=== PATIENT | male | born 1945 | race Caucasian/White ===

== ENCOUNTER 2022-01-04 08:24 | Inpatient (IN) ==
[2022-01-04 09:18] LABS: Basophils % 0.3 % (0.0-0.8); Eosinophils % 0.1 % (0.00-10.9); Hematocrit 40.4 VOL% (42.0-52.0); Hemoglobin 14.1 GM/DL (14.0-18.0); Immature Granulocytes % 0.5 %; Immature Granulocytes Absolute 0.06 #; Lymphocytes # 0.5 10*3/uL (1.4-4.0); Lymphocytes % 4.4 % (21.2-54.2); Mean Corpuscular HGB Conc 34.9 GM/DL (32-36); Mean Corpuscular Volume 88.6 FL (87-102); Mean Platelet Volume 10.7 FL (9.6-12.0); Monocytes % 6.6 % (1.7-12.7); Neutrophils % 88.1 % (38.7-73.9); Platelet Count 182 T/CUMM (130-400); Red Blood Count 4.56 MC/CUMM (3.8-5.5); White Blood Count 11.5 T/CUMM (4-12)
[2022-01-04 09:26] LABS: PT Patient Result 10.8 SECS (10.5-12.0)
[2022-01-04 09:32] LABS: Albumin 3.8 G/DL (3.4-5.0); Bilirubin,Total 0.6 MG/DL (0.20-1.00); Calcium 9.3 MG/DL (8.5-10.1); Osmolality,Calculated 284.5 MOS/KG (273-304); Potassium 3.5 MMOL/L (3.5-5.1); Total Protein 6.4 G/DL (6.4-8.2)
[2022-01-04 09:36] LABS: Lymphocytes 5 % (20-55); Segmented Neutrophils 91 % (50-85); Total Cells Counted 100
[2022-01-04 09:37] LABS: Platelet Estimate Adequate
[2022-01-04 11:17] LABS: Bilirubin,Urine Negative (Negative); Blood, Urine Large mg/dL (Negative); Glucose,Urine (UA) Negative (Negative); Ketones,Urine Negative (Negative); Mucus,Urine Few /LPF (Occasional); Nitrite,Urine Negative (Negative); Protein,Urine 2+ MG/DL; RBC,Urine 2 /HPF (0-4); Urine Appearance Cloudy (Clear); Urine Color Yellow (Yellow); Urine Specific Gravity 13.026 (1.001-1.035); Urine Urobilinogen 0.2 EU/DL (<2.0); Urine pH 5.5 (4.5-8.0)
[2022-01-04] MEDS ORDERED: ACETAMINOPHEN 325 MG TABLET PO PRN (15:43)
[2022-01-04] MEDS ORDERED: ONDANSETRON 4 MG/2 ML VIAL IV PRN (15:43)
[2022-01-04] MEDS ORDERED: MORPHINE 4 MG/1 ML VIAL IV PRN ×2 (16:36→19:32)
[2022-01-04] MEDS ORDERED: MORPHINE 4 MG/1 ML VIAL ONE (16:47)
[2022-01-04] MEDS ORDERED: hydrALAZINE 20 MG/1 ML VIAL IV PRN ×2 (17:03→19:31)
[2022-01-04] MEDS: SODIUM CHLORIDE 0.45% 1,000 ML IV SCH (19:30)
[2022-01-04] MEDS ORDERED: ENOXAPARIN 40 MG/0.4 ML SYRINGE SUBCUT SCH (21:00)
[2022-01-04] MEDS: DOCUSATE SODIUM 100 MG CAPSULE PO SCH (21:55)
[2022-01-05] MEDS ORDERED: diphenhydrAMINE CAP 25 MG CAPSULE PO PRN (01:17)
[2022-01-05] MEDS ORDERED: MELATONIN 3 MG TABLET PO PRN (01:22)
[2022-01-05] MEDS ORDERED: LORazepam 2 MG/1 ML VIAL IV ONE (01:45)
[2022-01-05] MEDS ORDERED: methylPREDNISolone SOD SUC 40 MG/1 ML VIAL IV SCH (02:30)
[2022-01-05 06:39] LABS: Basophils # 0.1 10*3/uL (0.0-0.2); Basophils % 0.6 % (0.0-0.8); Eosinophils # 0.1 10*3/uL (0.0-0.87); Eosinophils % 1.2 % (0.00-10.9); Hematocrit 40.7 VOL% (42.0-52.0); Hemoglobin 14.2 GM/DL (14.0-18.0); Immature Granulocytes % 0.4 %; Immature Granulocytes Absolute 0.03 #; Lymphocytes # 0.7 10*3/uL (1.4-4.0); Mean Corpuscular HGB Conc 34.9 GM/DL (32-36); Mean Corpuscular Volume 90.2 FL (87-102); Mean Platelet Volume 11.2 FL (9.6-12.0); Monocytes % 8.9 % (1.7-12.7); Neutrophils % 79.9 % (38.7-73.9); Platelet Count 168 T/CUMM (130-400); Red Blood Count 4.51 MC/CUMM (3.8-5.5); White Blood Count 8.1 T/CUMM (4-12)
[2022-01-05] MEDS: SODIUM CHLORIDE 0.45% 1,000 ML IV SCH ×3 (06:44→20:45)
[2022-01-05 07:12] LABS: Albumin 3.4 G/DL (3.4-5.0); Bilirubin,Total 1.4 MG/DL (0.20-1.00); Calcium 8.6 MG/DL (8.5-10.1); Osmolality,Calculated 280.4 MOS/KG (273-304); Potassium 3.5 MMOL/L (3.5-5.1); Total Protein 6.4 G/DL (6.4-8.2); Uric Acid 7.7 MG/DL (3.5-7.2)
[2022-01-05] MEDS ORDERED: POTASSIUM CHLORIDE 20 MEQ TABLET PO SCH (09:00)
[2022-01-05] MEDS ORDERED: amLODIPine 5 MG TABLET PO SCH (09:00)
[2022-01-05] MEDS: methylPREDNISolone SOD SUC 40 MG/1 ML VIAL IV SCH ×2 (09:09→20:47)
[2022-01-05] MEDS: SIMVASTATIN 20 MG TABLET PO SCH (09:10)
[2022-01-05] MEDS: DOCUSATE SODIUM 100 MG CAPSULE PO SCH ×2 (09:10→20:47)
[2022-01-05] MEDS: OXYBUTYNIN 5 MG TABLET PO SCH (09:10)
[2022-01-05] MEDS: PANTOPRAZOLE 40 MG TABLET PO SCH (09:10)
[2022-01-05] MEDS: hydrALAZINE 25 MG TABLET PO SCH ×2 (14:11→20:47)
[2022-01-05] MEDS: allopurinoL 100 MG TABLET PO SCH (14:12)
[2022-01-05] MEDS ORDERED: amLODIPine 5 MG TABLET PO ONE (15:00)
[2022-01-05] MEDS: POTASSIUM CHLORIDE 20 MEQ TABLET PO SCH (20:50)
[2022-01-05] MEDS ORDERED: OLANZapine 5 MG TABLET PO SCH (21:00)
[2022-01-06 05:33] LABS: Basophils % 0.1 % (0.0-0.8); Hemoglobin 15.4 GM/DL (14.0-18.0); Immature Granulocytes % 0.4 %; Immature Granulocytes Absolute 0.04 #; Lymphocytes # 0.4 10*3/uL (1.4-4.0); Lymphocytes % 3.8 % (21.2-54.2); Mean Platelet Volume 11.1 FL (9.6-12.0); Monocytes % 2.4 % (1.7-12.7); Neutrophils % 93.3 % (38.7-73.9); Platelet Count 190 T/CUMM (130-400); Red Blood Count 4.89 MC/CUMM (3.8-5.5); Red Cell Distribution Width 11.9 % (9.3-17.3); White Blood Count 10.6 T/CUMM (4-12)
[2022-01-06 05:46] LABS: Albumin 3.5 G/DL (3.4-5.0); Bilirubin,Total 1.6 MG/DL (0.20-1.00); Osmolality,Calculated 286.3 MOS/KG (273-304); Potassium 4.4 MMOL/L (3.5-5.1); Total Protein 6.9 G/DL (6.4-8.2)
[2022-01-06 06:26] LABS: Band Neutrophils 1 % (0-10); Lymphocytes 5 % (20-55); Platelet Estimate Adequate; Segmented Neutrophils 92 % (50-85); Total Cells Counted 100
[2022-01-06] MEDS: OXYBUTYNIN 5 MG TABLET PO SCH (09:00)
[2022-01-06] MEDS: amLODIPine 10 MG TABLET PO SCH (09:00)
[2022-01-06] MEDS: SIMVASTATIN 20 MG TABLET PO SCH (09:00)
[2022-01-06] MEDS: PANTOPRAZOLE 40 MG TABLET PO SCH (09:00)
[2022-01-06] MEDS: allopurinoL 100 MG TABLET PO SCH (09:00)
[2022-01-06] MEDS: DOCUSATE SODIUM 100 MG CAPSULE PO SCH ×2 (09:00→21:37)
[2022-01-06] MEDS: POTASSIUM CHLORIDE 20 MEQ TABLET PO SCH ×2 (09:01→21:37)
[2022-01-06] MEDS: methylPREDNISolone SOD SUC 40 MG/1 ML VIAL IV SCH ×2 (09:01→21:40)
[2022-01-06] MEDS: hydrALAZINE 25 MG TABLET PO SCH (09:02)
[2022-01-06 16:03] LABS: Lymphocytes,CSF 37 %; Monocytes,CSF 60 %; Neutrophils,CSF 3 %
[2022-01-06 16:04] LABS: Glucose,CSF 86 MG/DL (40-70); Red Blood Cell,CSF 20 C/CUMM
[2022-01-06 16:05] LABS: Appearance,CSF Clear; White Blood Cell,CSF 7 C/CUMM
[2022-01-06] MEDS: OLANZapine 5 MG TABLET PO SCH (21:36)
[2022-01-06] MEDS: SODIUM CHLORIDE 0.45% 1,000 ML IV SCH ×2 (23:00→23:56)
[2022-01-07] MEDS: PANTOPRAZOLE 40 MG TABLET PO SCH (09:36)
[2022-01-07] MEDS: methylPREDNISolone SOD SUC 40 MG/1 ML VIAL IV SCH ×2 (09:36→21:45)
[2022-01-07] MEDS: allopurinoL 100 MG TABLET PO SCH (09:36)
[2022-01-07] MEDS: amLODIPine 10 MG TABLET PO SCH (09:36)
[2022-01-07] MEDS: POTASSIUM CHLORIDE 20 MEQ TABLET PO SCH ×2 (09:36→21:47)
[2022-01-07] MEDS: DOCUSATE SODIUM 100 MG CAPSULE PO SCH ×2 (09:36→21:47)
[2022-01-07] MEDS: OXYBUTYNIN 5 MG TABLET PO SCH (09:36)
[2022-01-07] MEDS: SIMVASTATIN 20 MG TABLET PO SCH (09:36)
[2022-01-07] MEDS: SODIUM CHLORIDE 0.45% 1,000 ML IV SCH (14:53)
[2022-01-07] MEDS: OLANZapine 5 MG TABLET PO SCH (21:47)
[2022-01-08] MEDS: SODIUM CHLORIDE 0.45% 1,000 ML IV SCH (01:24)
[2022-01-08 09:40] VITALS: BP 165/81
[2022-01-08] MEDS: DOCUSATE SODIUM 100 MG CAPSULE PO SCH (09:50)
[2022-01-08] MEDS: amLODIPine 10 MG TABLET PO SCH (09:51)
[2022-01-08] MEDS: SIMVASTATIN 20 MG TABLET PO SCH (09:51)
[2022-01-08] MEDS: allopurinoL 100 MG TABLET PO SCH (09:51)
[2022-01-08] MEDS: PANTOPRAZOLE 40 MG TABLET PO SCH (09:52)
[2022-01-08] MEDS: OXYBUTYNIN 5 MG TABLET PO SCH (09:52)
[2022-01-08] MEDS: POTASSIUM CHLORIDE 20 MEQ TABLET PO SCH (09:52)
[2022-01-08] MEDS: methylPREDNISolone SOD SUC 40 MG/1 ML VIAL IV SCH (10:02)
[2022-01-08 12:05] LABS: VDRL Spinal Fluid Negative (Negative)
[2022-01-10 19:11] LABS: M. Tuberculosis PCR Result Negative (Negative); M. Tuberculosis PCR Source CSF
[2022-01-11 10:01] LABS: Kappa Free Light Chain, CSF 0.0551 mg/dL (<0.1000)
[2022-01-11 13:11] LABS: West Nile Virus Ab, IgG, CSF Negative (Negative); West Nile Virus Ab, IgM, CSF Negative (Negative)
[2022-01-12 08:01] LABS: Albumin, Serum 4300 mg/dL; IgG Index, CSF 0.84 (<=0.85); IgG, CSF 7.8 mg/dL (<=8.1); IgG, Serum 820 mg/dL (767 - 1590); IgG/Albumin Ratio, CSF 0.16 (<=0.21); Synthesis Rate, CSF 17.52 mg/24 h (<=12)
== END 2022-01-08 12:09 | disposition home health service (06) | DRG 78 ==
LOC: N.ED 08:24 → N.5E 15:43
PROVIDERS: ADMIT Family Medicine; ATTEND Internal Medicine